=== PATIENT | male | born 1965 | race African-American/Black ===

== ENCOUNTER 2016-09-21 01:56 | Emergency (ER) | payer OTHER ==
[2016-09-21 02:04] VITALS: BP 181/119; PULSE 82; RESP 16; TEMP 98.4; O2SAT 94
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
[2016-09-21] MEDS ORDERED: HYDROCOD/APAP 5/325 PREPACK#6 BTL TAKEHOME ONE (02:34)
[2016-09-21] MEDS ORDERED: IBUPROFEN 200 MG TAB PO ONE (02:34)
== END 2016-09-21 02:50 | disposition home or self-care (01) ==
DX: S16.1XXA Strain of muscle, fascia and tendon at neck level, initial encounter (principal); Z79.82 Long term (current) use of aspirin; V89.2XXA Person injured in unspecified motor-vehicle accident, traffic, initial encounter; Y92.410 Unspecified street and highway as the place of occurrence of the external cause

== ENCOUNTER → 2017-02-28 | Outpatient (CLI) | payer MEDICAID | LOC: CIMAGING 11:07 | PROVIDERS: ATTEND Family Medicine | DX: M18.12 Unilateral primary osteoarthritis of first carpometacarpal joint, left hand (principal) | CPT/HCPCS: 73140-PO; 80048-PO; 84100-PO ==